=== PATIENT | female | born 1980 | race Caucasian/White ===

== ENCOUNTER 2017-08-23 17:42 | Emergency (ER) | payer BC ==
[2017-08-23] MEDS ORDERED: Acetaminophen/oxyCODONE 325-5 MG Tab PO ONE (17:43)
[2017-08-23] MEDS ORDERED: Codeine/Promethazine 10-6.25 MG/5 ML Syrup 5 ML UD Cup PO ONE (17:43)
[2017-08-23] MEDS ORDERED: Levofloxacin 500 MG Tab PO ONE (17:43)
--- NOTE | 2017-08-23 18:14 | EDM.PDOC ---
ED HPI GENERAL MEDICAL PROBLEM - General Chief Complaint: Abdominal Pain Stated Complaint: ABDOMEN PAIN Time Seen by Provider: 08/23/17 18:00 Source of Information: Reports: Patient History Limitations: Reports: No Limitations - History of Present Illness INITIAL COMMENTS - FREE TEXT/NARRATIVE: Patient presents to the ER with complaints of abdominal pain. States has not felt well for the last 24 hours, running a fever and had a cough. Had a laparoscopic hysterectomy done on the 12 of August in [place] due to fibroids. Surgery was uneventful, only post op concern during hospitalization was constipation. Did feel dizzy from pain medications and has felt nauseated since surgery. Developed a fever and cough yesterday. Has been resting and taking ibuprofen. Started coughing more today and now has sudden onset of pain in the RLQ behind the puncture incision. She states the other puncture sites have no pain. Has had vaginal spotting since surgery, no acute bleeding. Onset: Today, Sudden Duration: Hour(s): Location: Reports: Abdomen Quality: Reports: Sharp, Stabbing Severity: Moderate Improves with: Reports: Medication Worsens with: Reports: Other (coughing) Associated Symptoms: Reports: Cough, Fever/Chills, Nausea/Vomiting, Shortness of Breath. 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 2 PATIENT PASSED ON HER OWN. 5 PREGNANCIES NO CHILDREN Social & Family History - Family History Family Medical History: Noncontributory - Tobacco Use Smoking Status *Q: Former Smoker Used Tobacco, but Quit: Yes Month/Year Tobacco Last Used: 2016 - Caffeine Use Caffeine Use: Reports: Coffee, Soda - Recreational Drug Use Recreational Drug Use: No ED ROS GENERAL - Review of Systems Review Of Systems: See Below Constitutional: Reports: Fever, Chills, Malaise, Decreased Appetite HEENT: Reports: No Symptoms Respiratory: Reports: Shortness of Breath, Cough. Denies: Sputum Cardiovascular: Denies: Chest Pain, Edema, Lightheadedness Endocrine: Reports: Fatigue GI/Abdominal: Reports: Abdominal Pain, Nausea. Denies: Constipation, Diarrhea, Vomiting : Reports: No Symptoms Musculoskeletal: Reports: No Symptoms Skin: Reports: Bruising (to puncture wounds) Neurological: Reports: No Symptoms Psychiatric: Reports: No Symptoms ED EXAM, GI/ABD - Physical Exam Exam: See Below Exam Limited By: No Limitations General Appearance: Alert, WD/WN, Mild Distress Ears: Normal External Exam, Normal TMs Nose: Normal Inspection, Normal Mucosa, No Blood Throat/Mouth: Normal Inspection, Normal Oropharynx Head: Normocephalic Neck: Normal Inspection, Supple, Non-Tender Respiratory/Chest: No Respiratory Distress, Lungs Clear, Normal Breath Sounds Cardiovascular: Regular Rate, Rhythm GI/Abdominal Exam: Normal Bowel Sounds, Soft, Tender (RLQ; guarded with exam) Neurological: Alert, Oriented Skin Exam: Warm, Dry, Ecchymosis (bruising to puncture wounds of abdomen) Course - Vital Signs Last Recorded V/S: Last Vital Signs Temp 99.7 F 08/23/17 17:46 Pulse 94 08/23/17 17:46 Resp 18 08/23/17 17:46 BP 109/68 08/23/17 17:46 Pulse Ox 93 L 08/23/17 17:46 - Orders/Labs/Meds Orders: Active Orders 24 hr Category Date Time Status Abdomen Pelvis w Cont [CT] Stat Exams 08/23/17 18:08 Taken Labs: Laboratory Tests 08/23/17 08/23/17 08/23/17 Range/Units 18:15 18:15 18:15 WBC 6.7 (5.0-10.0) 10^3/uL RBC 4.28 (4.00-5.50) 10^6/uL Hgb 13.1 (12.0-16.0) g/dL Hct 39.6 (37.0-47.0) % MCV 92.5 (82.0-94.0) fL MCH 30.6 (27.0-32.0) pg MCHC 33.1 (33.0-38.0) g/dL RDW Coeff of Zeus 12.6 (11.0-15.0) % Plt Count 245 (150-400) 10^3/uL Add Manual Diff Yes Neutrophils % (Manual) 59 (35-85) % Band Neutrophils % 5 (0-5) % Lymphocytes % (Manual) 22 (21-55) % Monocytes % (Manual) 14 H (2-12) % D-Dimer, Quantitative 0.96 H (0.00-0.50) Sodium 137 (136-145) mEq/L Potassium 4.1 (3.5-5.0) mEq/L Chloride 101 (98-106) mEq/L Carbon Dioxide 27 (21-32) mmol/L BUN 12 (7-18) mg/dL Creatinine 0.6 (0.6-1.0) mg/dL Est Cr Clr Drug Dosing 102.52 mL/min Estimated GFR (MDRD) > 60 (>=60) mL/min Glucose 100 H (75-99) mg/dL Calcium 9.0 (8.4-10.1) mg/dL Total Bilirubin 0.1 (0.0-1.0) mg/dL AST 33 (15-37) U/L ALT 45 (12-78) U/L Alkaline Phosphatase 55 (46-116) U/L C-Reactive Protein 1.2 H (0.2-0.8) mg/dL Total Protein 7.5 (6.4-8.2) g/dL Albumin 3.5 (3.4-5.0) g/dL Meds: Medications Discontinued Medications Generic Name Dose Route Start Last Admin Trade Name Freq PRN Reason Stop Dose Admin Iopamidol 100 ml 08/23/17 18:25 08/23/17 18:47 Isovue-300 (61%) IVPUSH 08/23/17 18:26 100 ml ONETIME ONE Administration Ketorolac Tromethamine 30 mg 08/23/17 18:57 08/23/17 19:06 Toradol IVPUSH 08/23/17 18:58 30 mg ONETIME ONE Administration Levofloxacin 1 packet 08/23/17 19:14 Take Home: Levofloxacin 500 Mg, 1 Tab Pack PO 08/23/17 19:15 ONETIME ONE Oxycodone/Acetaminophen 1 packet 08/23/17 19:14 Take Home: Acetaminophen/Oxycodon, 2 Tab Pack PO 08/23/17 19:15 ONETIME ONE Promethazine HCl/Codeine 1 packet 08/23/17 19:15 Take Home: Codeine/Prometh 10-6.25 Mg, 2 Pack PO 08/23/17 19:16 ONETIME ONE - Re-Assessments/Exams Free Text/Narrative Re-Assessment/Exam: 08/23/17 19:19 Call received from radiology. Has a 2 cm by 2 cm fluid concentration in the right lower quadrant, could be seroma versus hemorrhage, cannot completely exclude an abscess. No active bleeding. Patient informed. As she has URI symptoms, will cover with Levaquin daily for both issues. Patient has had codeine before and tolerated well so will cover cough with prometh with codeine as well. Departure - Departure Time of Disposition: 19:22 Disposition: Home, Self-Care 01 Condition: Fair Clinical Impression: Abdominal pain, Seroma, URI (upper respiratory infection) - Discharge Information Forms: ED Department Discharge Additional Instructions: 1. Rest 2. Push fluids 3. Percocet 1/2 to 1 tab every 6 hours as needed for pain, switch back to Meperidine tomorrow for pain 4. Levaquin 500 mg daily for 7 days 5. Prometh with codeine 1-2 tsp every 6 hours for cough 6. Follow up with surgeon if any ongoing concerns. - My Orders Last 24 Hours: My Active Orders 08/23/17 18:08 Abdomen Pelvis w Cont [CT] Stat - Assessment/Plan Last 24 Hours: My Active Orders 08/23/17 18:08 Abdomen Pelvis w Cont [CT] Stat
[2017-08-23] MEDS ORDERED: Iopamidol 612 MG/ML 100 ML Bottle IVPUSH ONE (18:25)
[2017-08-23 18:31] LABS: CHLORIDE,CL 101 mEq/L (98-106); SODIUM,NA 137 mEq/L (136-145)
[2017-08-23] MEDS ORDERED: Ketorolac 30 MG/ML SDV IVPUSH ONE (18:57)
[2017-08-23] MEDS ORDERED: Take Home: Levofloxacin 500 MG Tab, 1 Tab Pack PO ONE (19:14)
[2017-08-23] MEDS ORDERED: Take Home: Acetaminophen/oxyCODONE 325-5 MG, 2 Tab Pack PO ONE (19:14)
[2017-08-23] MEDS ORDERED: Take Home: Codeine/Promethazine 10-6.25 MG/5 ML Syrup 5 ML, 2 Cup Pack PO ONE (19:15)
== END 2017-08-23 19:38 | disposition home or self-care (01) ==
LOC: CC.ED 17:42
DX: N99.842 Postprocedural seroma of a genitourinary system organ or structure following a genitourinary system procedure (principal); J06.9 Acute upper respiratory infection, unspecified; Z88.5 Allergy status to narcotic agent; Z87.891 Personal history of nicotine dependence; Z88.1 Allergy status to other antibiotic agents
CPT/HCPCS: 36415; 74177; 80053; 85025; 85379; 86140; 96374; 99284; A9270-GY; J1885; Q9967